=== PATIENT | male | born 1990 | race Caucasian/White ===

== ENCOUNTER 2019-04-21 18:27 | Emergency (ER) | payer OTHER ==
[2019-04-21] MEDS ORDERED: ACETAMINOPHEN 325 MG TABLET PO STA (19:28)
--- NOTE | 2019-04-21 19:57 | ED Physician Documentation ---
History of Present Illness - Stated complaint Stated Complaint: CP/VOMIT/FEVER - Chief complaint Chief Complaint: General - History obtained from History obtained from: Patient, Family - History of Present Illness Timing: How many days ago (4) Pain level max: 3 Pain level now: 3 - Additonal information Additional information: 28-year-old male presents the emergency department with fever, cough, congestion for the past 3 to 4 days. States decreased appetite. No abdominal pain. No vomiting. No diarrhea. Nothing makes it better or worse. Has not taken anything for this today. Denies any other medical problems. Review of Systems Constitutional: reports: Fever Nose: reports: Rhinorrhea / runny nose, Congestion Respiratory: reports: Cough GI: denies: Vomiting, Diarrhea Skin: denies: Rash Musculoskeletal: denies: Neck pain, Back pain Neurologic: denies: Headache PD PAST MEDICAL HISTORY - Past Medical History Past Medical History: No - Past Surgical History Past Surgical History: No - Present Medications Home Medications: Ambulatory Orders Medication Instructions Recorded Confirmed Ibuprofen [Motrin] 800 mg PO Q8H PRN #30 tablet 04/21/19 Ondansetron Odt [Zofran] 4 mg TL Q6H PRN #10 tablet 04/21/19 - Allergies Allergies/Adverse Reactions: Allergies Allergy/AdvReac Type Severity Reaction Status Date / Time No Known Drug Allergies Allergy Verified 04/21/19 18:35 - Living Situation Living Situation: reports: With family Living Arrangement: reports: At home - Social History Does the pt drink ETOH?: No Does the pt have substance abuse?: No - Family History Family history: reports: Non contributory PD ED PE NORMAL - Vitals Vital signs reviewed: Yes - General General: Alert and oriented X 3, No acute distress, Well developed/nourished - HEENT HEENT: PERRL, Moist mucous membranes - Neck Neck: Supple, no meningeal sign - Cardiac Cardiac: RRR, Strong equal pulses - Respiratory Respiratory: No respiratory distress, Other (Rhonchi left upper lobe) - Abdomen Abdomen: Soft, Non tender, Non distended - Derm Derm: Warm and dry, No rash - Neuro Neuro: Alert and oriented X 3 - Psych Psych: Normal mood, Normal affect Results - Vitals Vitals: Vital Signs - 24 hr 04/21/19 04/21/19 18:35 20:44 Temperature 39.0 C H 39.2 C H Heart Rate 100 97 Respiratory 14 12 Rate Blood Pressure 101/63 104/55 L O2 Saturation 98 97 Oxygen O2 Source Room air - Labs Labs: Laboratory Tests 04/21/19 18:40 Influenza A (Rapid) Negative Influenza B (Rapid) Negative - Rads (name of study) cxr Radiology: Prelim report reviewed, EMP read contemporaneously, See rad report (No acute disease) PD MEDICAL DECISION MAKING - ED course Complexity details: reviewed results, considered differential, d/w patient, d/w family ED course: Patient with what appears to be a viral illness. Likely influenza, though negative influenza screen, likely false negative. We will continue supportive care and have him follow-up with his doctor. He is well-appearing, nontoxic. Patient counseled regarding signs and symptoms for which I believe and urgent re-evaluation would be necessary. Patient with good understanding of and agreement to plan and is comfortable going home at this time This document was made in part using voice recognition software. While efforts are made to proofread this document, sound alike and grammatical errors may occur. Departure - Departure Disposition: 01 Home, Self Care Clinical Impression: Viral syndrome Fever Qualifiers: Fever type: unspecified Qualified Code(s): R50.9 - Fever, unspecified Condition: Good Instructions: ED Fever Control, ED Viral Syndrome Follow-Up: your,doctor in 1 week if not better [Other] Prescriptions: Ibuprofen [Motrin] 800 mg PO Q8H PRN #30 tablet PRN Reason: PAIN &/OR FEVER Ondansetron Odt [Zofran] 4 mg TL Q6H PRN #10 tablet PRN Reason: Nausea / Vomiting Comments: Drink plenty of fluids and rest. Return if you worsen. This should improve over the next 3 to 4 days. Forms: Activity restrictions Discharge Date/Time: 04/21/19 21:01
--- NOTE | 2019-04-21 20:22 | XRAY Report ---
Reason: cough Procedure Date: 04/21/2019 Accession Number: [id number] / [id number] Procedure: XR - Chest 2 View X-Ray CPT Code: 02630 Final Report FULL RESULT: EXAM: CHEST RADIOGRAPHY EXAM DATE: 04/21/2019 08:09 PM. CLINICAL HISTORY: Cough. COMPARISON: None. TECHNIQUE: 2 views. FINDINGS: Lungs/Pleura: No focal opacities evident. No pleural effusion. No pneumothorax. Normal volumes. Mediastinum: Heart and mediastinal contours are unremarkable. Other: None. IMPRESSION: No evidence of pneumonia RADIA
[2019-04-21 20:45] VITALS: BP 104/55
== END 2019-04-21 21:01 | disposition home or self-care (01) ==
LOC: ED 18:27
DX: B34.9 Viral infection, unspecified (principal)
CPT/HCPCS: 71046; 87275; 87276; 93005; 99284; A9270